=== PATIENT | male | born 1990 | race Caucasian/White ===

== ENCOUNTER 2016-08-18 08:41 | Emergency (ER) | payer SELFPAY ==
[~2016-08-18] VITALS: Ht 182.9 cm; Wt 75.0 kg
[~2016-08-18 08:41] MED LIST: BACT800T5 PO; CEPH500C3 PO
[2016-08-18 08:43] VITALS: BP 136/80; PULSE 74; RESP 20; TEMP 97.9; O2SAT 98
[2016-08-18] MEDS ORDERED: KETOROLAC TROMETHAMINE 30 MG/ML (IVP) VIAL IV PUSH ONE (09:15)
[2016-08-18] MEDS ORDERED: SODIUM CHLORIDE 0.9% FLUSH 10 ML FLUSH IVF PRN (09:15)
--- NOTE | 2016-08-18 09:34 | PD ---
HPI Chief Complaint: Chest Pain Time Seen by Provider: 09:02 Travel History International Travel<30 days: No Contact w/Intl Traveler<30days: No Traveled to known affect area: No History of Present Illness HPI This is a 26-year-old male with no past medical she, presents today with points of left sided chest pain since yesterday. The patient restarts pain as sharp and stabbing in his left upper chest wall. He denies any radiation of the discomfort. He reports no shortness of breath. He states it came on yesterday while at work. He states that when he woke up and rolled on his left side, it was worse. He reports worse pain with movement. It is reproducible on the left upper chest wall. Patient does use tobacco products daily. He also smokes occasional marijuana. There are no other drugs of abuse. [facility] Past Medical History Medical History: Denies Significant Hx Diminished Hearing: No Influenza Vaccination: No Past Surgical History Other Surgery: Yes (TUMOR REMOVAL INFANT FROM RIGHT SIDE) Social History Alcohol Use: Yes (COUPLE TIMES A TIMES) Tobacco Use: Yes (1 PPD) Substance Use: No Allergies-Medications (Allergen,Severity, Reaction): Coded Allergies: No Known Allergies (Unverified , 06/11/14) Reported Meds & Prescriptions Reported Meds & Active Scripts Active Naproxen Sodium 500 Mg Tab 500 Mg PO BID Medrol Dosepak (Methylprednisolone) 4 Mg Dspk 4 Mg PO DIRECTED Per Pharmacist direction Zithromax Z-Prince (Azithromycin) 250 Mg Dspk 250 Mg PO DIRECTED 500 MG (2 tabs) day 1, then 1 tab days 2-5. Review of Systems Except as stated in HPI: all other systems reviewed are Neg General / Constitutional: No: Fever, Chills HENT: No: Headaches, Neck Pain Cardiovascular: Positive: Chest Pain or Discomfort Respiratory: No: Cough, Shortness of Breath Gastrointestinal: No: Nausea, Vomiting, Abdominal Pain Musculoskeletal: Positive: Myalgias (pain in the left upper chest wall below the clavicle.), No: Weakness, Pain Neurologic: No: Weakness, Dizziness, Headache Physical Exam Narrative GENERAL: Well-nourished, well-developed patient. SKIN: Focused skin assessment warm/dry. HEAD: Normocephalic/atraumatic. EYES: No scleral icterus. No injection or drainage. NECK: Supple, trachea midline. CARDIOVASCULAR: Regular rate and rhythm without murmurs, gallops, or rubs. On examination patient's chest he has reproducible pain just below his left clavicle. This was midline. There is no bony deformity. RESPIRATORY: Breath sounds equal bilaterally. No accessory muscle use. No Rales or rhonchi appreciated. GASTROINTESTINAL: Abdomen soft, non-tender, nondistended. MUSCULOSKELETAL: No cyanosis, or edema. NEUROLOGICAL: Awake and alert. Cranial nerves II through XII intact. Motor grossly within normal limits. Five out of 5 muscle strength in all muscle groups. Normal speech. Data Data Last Documented VS Vital Signs Date Time Temp Pulse Resp B/P Pulse Ox O2 Delivery O2 Flow Rate FiO2 08/18/16 08:43 97.9 74 20 136/80 98 Room Air Orders Electrocardiogram (08/18/16 09:15) Basic Metabolic Panel (Bmp) (08/18/16 09:15) Ckmb (Isoenzyme) Profile (08/18/16 09:15) Complete Blood Count With Diff (08/18/16 09:15) Troponin I (08/18/16 09:15) Chest, Single Ap (08/18/16 09:15) Ecg Monitoring (08/18/16 09:15) Bilateral Bp Monitoring (08/18/16 09:15) Iv Access Insert/Monitor (08/18/16 09:15) Oximetry (08/18/16 09:15) Oxygen Administration (08/18/16 09:15) Sodium Chloride 0.9% Flush (Ns Flush) (08/18/16 09:15) Ketorolac Inj (Toradol Inj) (08/18/16 09:15) Bilateral Bp Monitoring (08/18/16 09:34) CKMB (08/18/16 09:25) CKMB% (08/18/16 09:25) Labs Laboratory Tests Test 08/18/16 09:25 White Blood Count 12.2 TH/MM3 Red Blood Count 5.03 MIL/MM3 Hemoglobin 15.5 GM/DL Hematocrit 45.8 % Mean Corpuscular Volume 91.0 FL Mean Corpuscular Hemoglobin 30.7 PG Mean Corpuscular Hemoglobin 33.8 % Concent Red Cell Distribution Width 13.0 % Platelet Count 157 TH/MM3 Mean Platelet Volume 8.3 FL Neutrophils (%) (Auto) 75.4 % Lymphocytes (%) (Auto) 13.2 % Monocytes (%) (Auto) 9.0 % Eosinophils (%) (Auto) 2.1 % Basophils (%) (Auto) 0.3 % Neutrophils # (Auto) 9.2 TH/MM3 Lymphocytes # (Auto) 1.6 TH/MM3 Monocytes # (Auto) 1.1 TH/MM3 Eosinophils # (Auto) 0.3 TH/MM3 Basophils # (Auto) 0.0 TH/MM3 CBC Comment DIFF FINAL Differential Comment Sodium Level 138 MEQ/L Potassium Level 4.0 MEQ/L Chloride Level 105 MEQ/L Carbon Dioxide Level 27.1 MEQ/L Anion Gap 6 MEQ/L Blood Urea Nitrogen 8 MG/DL Creatinine 0.99 MG/DL Estimat Glomerular Filtration 93 ML/MIN Rate Random Glucose 107 MG/DL Calcium Level 9.2 MG/DL Total Creatine Kinase 143 U/L Creatine Kinase MB 0.8 NG/ML Troponin I LESS THAN 0.02 NG/ML MDM Medical Decision Making Medical Screen Exam Complete: Yes Emergency Medical Condition: Yes Differential Diagnosis Muscle skeletal versus ACS versus pneumothorax versus intercostal muscle pull. Narrative Course 26-year-old male presents today with complaints of left sided chest pain. The patient describes it as constant since yesterday. The patient's cardiac enzymes are within normal limits. EKG shows no acute process. The patient's chest x-ray shows a minimal opacity in the left lung field. Radiology reading states that this could be inflammatory. Patient's white count was slightly elevated at 12. He'll be started on a Z-Prince. He'll also be given a Medrol Dosepak and an anti-inflammatory. He is instructed to follow up with primary care doctor for resolution of the finding on his chest x-ray. Diagnosis Primary Impression: Atypical chest pain Additional Impressions: left lung opacity, possible early infiltrate. Tobacco use Additional Instructions: Follow up with primary care physician in one to 2 weeks. Outpatient x-ray to evaluate for resolution of the left lung finding. Stop smoking cigarettes. Med/Other Pt SpecificInfo: Prescription(s) given Scripts Naproxen Sodium 500 Mg [id number] Mg PO BID #14 TAB Ref 0 Prov:Moisés Joseph MD 08/18/16 Methylprednisolone Dosepak (Medrol Dosepak)4 Mg Dspk4 Mg PO DIRECTED #1 DSPK Ref 0 Per Pharmacist direction Prov:Moisés Joseph MD 08/18/16 Azithromycin (Zithromax Z-Prince)250 Mg [id number] Mg PO DIRECTED #1 DSPK Ref 0 500 MG (2 tabs) day 1, then 1 tab days 2-5. Prov:Moisés Joseph MD 08/18/16 Disposition: 01 DISCHARGE HOME Condition: Stable Moisés Joseph MD Aug 18, 2016 09:34
[2016-08-18 09:38] LABS: AUTOMATED NEUTROPHIL # 9.2 TH/MM3 (1.8-7.7); BASOPHIL % 0.3 % (0.0-2.0); EOSINOPHIL # 0.3 TH/MM3 (0-0.4); EOSINOPHIL % 2.1 % (0.0-4.0); HEMATOCRIT 45.8 % (39.0-51.0); HEMO FLAGS DIFF FINAL; LYMPH % 13.2 % (9.0-44.0); LYMPHOCYTE # 1.6 TH/MM3 (1.0-4.8); MEAN CORPUSCULAR HEMOGLOBIN 30.7 PG (27.0-34.0); MEAN CORPUSCULAR HGB CONC 33.8 % (32.0-36.0); NEUT % 75.4 % (16.0-70.0); PLATELET COUNT 157 TH/MM3 (150-450); RED BLOOD COUNT 5.03 MIL/MM3 (4.50-5.90); WHITE BLOOD COUNT 12.2 TH/MM3 (4.0-11.0)
[2016-08-18 10:00] LABS: ANION GAP 6 MEQ/L (5-15); BICARBONATE 27.1 MEQ/L (21.0-32.0); BLOOD UREA NITROGEN 8 MG/DL (7-18); CHLORIDE 105 MEQ/L (98-107); GLOMERULAR FILTRATION RATE 93 ML/MIN (>89); SODIUM (NA) 138 MEQ/L (136-145)
--- NOTE | 2016-08-18 10:03 | RADRPT ---
EXAM DATE/TIME: 08/18/2016 09:31 [place] COMPARISON: No previous studies available for comparison. INDICATIONS : Chest pain. MEDICAL HISTORY : None. SURGICAL HISTORY : None. ENCOUNTER: Initial ACUITY: 2 days PAIN SCORE: 7/10 LOCATION: Bilateral chest FINDINGS: Minimal parenchymal opacity is present laterally in the left lung. This could be early inflammatory process. The right lung is clear. The heart and pulmonary vascularity are normal. The portion of the bony skeleton visualized is unremarkable. CONCLUSION: Minimal parenchymal opacity left lung Shoaib Durán MD FACR on August 18, 2016 at 9:58 Board Certified Radiologist. This report was verified electronically.
[2016-08-18 10:05] LABS: CREATINE KINASE 143 U/L (39-308)
[2016-08-18 10:19] LABS: CKMB 0.8 NG/ML (0.5-3.6)
[2016-08-18] MEDS ORDERED: NAPR-701 PO (10:33)
[2016-08-18] MEDS ORDERED: MEDR4PAK PO (10:33)
[2016-08-18] MEDS ORDERED: ZITHTAB PO (10:33)
[2016-08-18 11:11] VITALS: BP 110/61
--- NOTE | 2016-08-18 22:55 | EKG ---
Date Performed: 08/18/2016 Time Performed: 09:01:30 PTAGE: 26 years EKG: Sinus rhythm BORDERLINE RIGHT AXIS DEVIATION BORDERLINE ECG NO PREVIOUS TRACING DOCTOR: Sue Tavares Interpretating Date/Time 08/18/2016 22:53:07
== END 2016-08-18 12:20 | disposition home or self-care (01) ==
LOC: NEPC 08:41
DX: R07.89 Other chest pain (principal); F17.200 Nicotine dependence, unspecified, uncomplicated; Z79.899 Other long term (current) drug therapy
CPT/HCPCS: 71010; 80048; 82550; 82552; 84484; 85025; 93005; 96374; 99285; J1885